=== PATIENT | female | born 1980 | race Caucasian/White ===

== ENCOUNTER 2020-02-15 09:19 | Day surgery (SDC) | payer OTHER ==
[2020-02-14 12:26] LABS: BASOPHILS ABSOLUTE AUTO 0.07 K/mm3 (0.00-0.23); BASOPHILS PERCENT AUTO 1 % (0-2); EOSINOPHILS ABSOLUTE AUTO 0.13 K/mm3 (0.00-0.68); EOSINOPHILS PERCENT AUTO 2 % (0-6); Hematocrit 37.5 % (33.0-51.0); Hemoglobin 11.3 g/dL (11.5-16.0); IMMATURE GRAN ABSOLUTE AUTO 0.03 K/mm3 (0.00-0.10); IMMATURE GRAN PERCENT AUTO 0 % (0-1); LYMPHOCYTES ABSOLUTE AUTO 1.72 K/mm3 (0.84-5.20); LYMPHOCYTES PERCENT AUTO 22 % (21-46); MONOCYTES ABSOLUTE AUTO 0.47 K/mm3 (0.16-1.47); MONOCYTES PERCENT AUTO 6 % (4-13); Mean Corpuscular HGB 22.7 pg (26.0-34.0); Mean Corpuscular HGB Conc 30.1 g/dL (31.5-36.5); Mean Corpuscular Volume 75 fL (80-100); Mean Platelet Volume 10.6 fL (9.1-12.4); NEUTROPHILS PERCENT AUTO 69 % (41-73); Platelet Count 364 K/mm3 (150-400); RDW Coefficient Variation 13.9 % (11.7-14.2); RDW Standard Deviation 37.5 fL (35.1-46.3); Red Blood Cell Count 4.98 M/mm3 (3.80-5.20); White Blood Cell Count 7.72 K/mm3 (4.00-11.30)
[2020-02-14 15:10] LABS: Anion Gap 9 mmol/L (6-16); Beta HCG, Quantitative, Serum <1 mIU/mL (0-3); Blood Urea Nitrogen 13 mg/dL (8-24); Bun/Creatinine Ratio 24.3 (12.0-20.0); CO2, Blood 22 mmol/L (21-32); Calcium, Blood 8.8 mg/dL (8.5-10.1); Chloride, Blood 109 mmol/L (98-108); Creatinine, Blood 0.54 mg/dL (0.40-1.00); Glomerular Filtration Rate >60 (60-); Glucose, Blood 124 mg/dL (70-99); Potassium, Blood 3.8 mmol/L (3.5-5.5); Sodium, Blood 140 mmol/L (136-145)
[~2020-02-15] VITALS: Ht 157.5 cm; Wt 92.7 kg
[~2020-02-15 09:19] MED LIST: BERBERINE PO; CRYSELLE-28 TA1 EACH PO; CYCL10 PO; HYDACE5 PO; IBUP800 PO; SULTRIDS PO; ZYRTEC10 M2 PO
--- NOTE | 2020-02-15 16:22 | NUR ---
02/15/[address] IN TO ASSIST WITH BOWEL ADHESIONS.
--- NOTE | 2020-02-15 18:35 | NUR ---
PATIENT TO ROOM 228 VIA GURNEY FROM PACU AT THIS TIME. SLEEPY, BUT AROUSES TO ANSWER QUESTIONS. STATES ONLY PAIN IS FC WHICH IS PATENT AND DRAINING CLEAR YELLOW URINE, STAT LOCK IN PLACE. VSS. BIOX 95% ON RA. GAUZE DRESSINGS X 5 TO ABD,D&I. HRR. LS CLEAR. DENIES NAUSEA.PAS IN PLACE. PATIENT RETURNS TO SLEEP WHEN NOT DISTURBED. WILL REPORT TO NOC RN.
[2020-02-16 05:01] LABS: BASOPHILS ABSOLUTE AUTO 0.01 K/mm3 (0.00-0.23); BASOPHILS PERCENT AUTO 0 % (0-2); EOSINOPHILS PERCENT AUTO 0 % (0-6); Hematocrit 31.6 % (33.0-51.0); Hemoglobin 9.4 g/dL (11.5-16.0); IMMATURE GRAN ABSOLUTE AUTO 0.07 K/mm3 (0.00-0.10); IMMATURE GRAN PERCENT AUTO 1 % (0-1); LYMPHOCYTES ABSOLUTE AUTO 1.21 K/mm3 (0.84-5.20); LYMPHOCYTES PERCENT AUTO 8 % (21-46); MONOCYTES ABSOLUTE AUTO 0.99 K/mm3 (0.16-1.47); MONOCYTES PERCENT AUTO 7 % (4-13); Mean Corpuscular HGB 22.9 pg (26.0-34.0); Mean Corpuscular HGB Conc 29.7 g/dL (31.5-36.5); Mean Corpuscular Volume 77 fL (80-100); Mean Platelet Volume 10.4 fL (9.1-12.4); NEUTROPHILS ABSOLUTE AUTO 12.23 K/mm3 (1.96-9.15); NEUTROPHILS PERCENT AUTO 84 % (41-73); Platelet Count 315 K/mm3 (150-400); RDW Coefficient Variation 14.1 % (11.7-14.2); RDW Standard Deviation 39.7 fL (35.1-46.3); Red Blood Cell Count 4.11 M/mm3 (3.80-5.20); White Blood Cell Count 14.51 K/mm3 (4.00-11.30)
--- NOTE | 2020-02-16 06:25 | NUR ---
SHIFT SUMMARY: CHRISTY IS A&OX4. VSS, NO ACUTE EVENTS OVERNIGHT. TANNER DISCONTINUED. SHE IS TOLERATING PO INTAKE WELL. SHE IS A ONE PERSON ASSIST TO THE BSC. IV TO LEFT AC PATENT. PAS IN PLACE. LAP SITES ON ABDOMEN C/D&I. SHE IS LYING IN BED WITH HER CALL LIGHT IN REACH. WILL REPORT TO DAY SHIFT RN.
[2020-02-16] MEDS ORDERED: DOCU100 PO (12:37)
[2020-02-16] MEDS ORDERED: PYRI100 PO (12:37)
[2020-02-16] MEDS ORDERED: Percocet 5-3251 EACH PO (12:38)
[2020-02-16] MEDS ORDERED: Milk Of Ma400 MG/5 M PO (12:38)
[2020-02-16] MEDS ORDERED: SIME80CH PO (12:39)
[2020-02-16] MEDS ORDERED: SENN187 PO (12:39)
[2020-02-16] MEDS ORDERED: PROM25 PO (12:39)
[2020-02-16] MEDS ORDERED: IBUP800 PO (12:40)
--- NOTE | 2020-02-16 13:35 | NUR ---
DISCHARGE: PT BEEN EATING AND DRINKING, VOIDING, PASSING GAS. PT BEEN UP AMBULATING WITHOUT DIFFICULTY. PT DISCHARGED BY CLINICAL EDUCATION MANAGER. WONDERDEX BEEN TO SEE PT.
== END 2020-02-16 13:36 | disposition home or self-care (01) ==
LOC: ORSCMMR 09:19 → ORD 11:00 → SURS 18:14 → ORSCMMR 02-16 13:36
PROVIDERS: Obstetrics & Gynecology
PROC: 0UT24ZZ Resection of Bilateral Ovaries, Percutaneous Endoscopic Approach (ICD-10-PCS; principal; 2020-02-15 11:00)
PROC: 0UT94ZZ Resection of Uterus, Percutaneous Endoscopic Approach (ICD-10-PCS; principal; 2020-02-15 11:00)
PROC: 8E0W4CZ Robotic Assisted Procedure of Trunk Region, Percutaneous Endoscopic Approach (ICD-10-PCS; principal; 2020-02-15 11:00)
PROC: 0UT74ZZ Resection of Bilateral Fallopian Tubes, Percutaneous Endoscopic Approach (ICD-10-PCS; principal; 2020-02-15 11:00)
DX: N92.0 Excessive and frequent menstruation with regular cycle (principal); N94.6 Dysmenorrhea, unspecified; D25.0 Submucous leiomyoma of uterus; D25.9 Leiomyoma of uterus, unspecified; D27.1 Benign neoplasm of left ovary; D27.0 Benign neoplasm of right ovary; Z87.891 Personal history of nicotine dependence; E66.01 Morbid (severe) obesity due to excess calories; Z68.37 Body mass index [BMI] 37.0-37.9, adult
CPT/HCPCS: 58571; S2900; 36415; 80048; 84702; 85025; 86850; 86900; 86901; 88307; J0690; J1100; J1885; J2250; J2370; J2405; J2704; J3010; J7120

== ENCOUNTER → 2025-05-21 | Outpatient (CLI) | payer OTHER ==
[~2025-05-21] MED LIST changes: +DOCU100 PO; +Milk Of Ma400 MG/5 M PO; +PROM25 PO; +PYRI100 PO; +Percocet 5-3251 EACH PO; +SENN187 PO; +SIME80CH PO
[2025-05-21 20:15] LABS: BASOPHILS ABSOLUTE AUTO 0.07 K/mm3 (0.00-0.23); BASOPHILS PERCENT AUTO 1 % (0-2); EOSINOPHILS ABSOLUTE AUTO 0.17 K/mm3 (0.00-0.68); EOSINOPHILS PERCENT AUTO 2 % (0-6); Hematocrit 43.8 % (33.0-51.0); Hemoglobin 14.8 g/dL (11.5-16.0); IMMATURE GRAN ABSOLUTE AUTO 0.02 K/mm3 (0.00-0.10); IMMATURE GRAN PERCENT AUTO 0 % (0-1); LYMPHOCYTES ABSOLUTE AUTO 2.13 K/mm3 (0.84-5.20); LYMPHOCYTES PERCENT AUTO 24 % (21-46); MONOCYTES ABSOLUTE AUTO 0.52 K/mm3 (0.16-1.47); MONOCYTES PERCENT AUTO 6 % (4-13); Mean Corpuscular HGB Conc 33.8 g/dL (31.5-36.5); Mean Corpuscular Volume 86 fL (80-100); NEUTROPHILS ABSOLUTE AUTO 5.95 K/mm3 (1.96-9.15); NEUTROPHILS PERCENT AUTO 67 % (41-73); NRBC ABSOLUTE 0.00 K/mm3 (0.00-0.02); NRBC Auto 0.0 /100 WBC (0.0-0.2); Platelet Count 225 K/mm3 (150-400); RDW Coefficient Variation 12.3 % (11.7-14.2); RDW Standard Deviation 38.3 fL (35.1-46.3)
[2025-05-21 20:38] LABS: Alanine Aminotransfer (ALT/SGP 85 U/L (12-78); Albumin, Blood 4.2 g/dL (3.4-5.0); Albumin/Globulin Ratio 1.2 (0.8-1.8); Anion Gap 9 mmol/L (3-11); Aspartate Aminotrans (AST/SGOT 34 U/L (12-37); Bilirubin, Total 0.4 mg/dL (0.1-1.0); Blood Urea Nitrogen 12 mg/dL (8-24); CHOL/HDL RATIO 2.8; CO2, Blood 26 mmol/L (21-32); Calcium, Blood 9.6 mg/dL (8.5-10.1); Chloride, Blood 104 mmol/L (98-108); Cholesterol 144 mg/dL (50-200); Creatinine, Blood 0.53 mg/dL (0.40-1.00); Globulin, Blood 3.5 g/dL (2.2-4.0); Glucose, Blood 161 mg/dL (70-99); HDL Cholesterol 51 mg/dL (>39); LDL/HDL RATIO 0.6; Low Density Lipoprotein Chol 29 mg/dL (0-110); Potassium, Blood 4.2 mmol/L (3.5-5.5); Sodium, Blood 135 mmol/L (136-145); Total Protein, Blood 7.7 g/dL (6.4-8.2); Triglycerides 321 mg/dL (30-160); Very Low Density Lipoprot Chol 64 mg/dL (6-32)
== END ==
LOC: LAB 15:40 → LAB SHORT 15:40
PROVIDERS: Student in an Organized Health Care Education/Training Program
DX: E11.9 Type 2 diabetes mellitus without complications (principal); I10 Essential (primary) hypertension; E78.2 Mixed hyperlipidemia
CPT/HCPCS: 80053; 80061; 83036; 85025